=== PATIENT | male | born 1955 | race African-American/Black ===

== ENCOUNTER 2020-12-17 20:00 | Inpatient (IN) | payer MEDICARE ==
[2020-12-17] MEDS ORDERED: Aspirin Chewable 81 MG TAB ONE (20:31)
[2020-12-17] MEDS ORDERED: Acetaminophen 325 MG TAB PO PRN (22:10)
[2020-12-17] MEDS ORDERED: Ondansetron ODT 4 MG TAB PO PRN (22:10)
[2020-12-17] MEDS ORDERED: Dextrose 50% Abboject 50 ML SYRINGE SLOW IVP PRN (22:48)
[2020-12-17] MEDS ORDERED: HumaLOG 300 UNITS/3 ML VIAL SC PRN ×2 (22:48)
[2020-12-17] MEDS ORDERED: Dextrose 5% in Water 1,000 ML IV PRN (22:48)
[2020-12-17] MEDS ORDERED: traMADol HCl 50 MG TAB PO PRN (23:38)
[2020-12-17] MEDS ORDERED: Cyclobenzaprine 10 MG TAB PO SCH (23:45)
[2020-12-17] MEDS ORDERED: Gabapentin 300 MG CAP PO SCH (23:45)
[2020-12-17] MEDS ORDERED: Torsemide 20 MG TAB PO SCH (23:45)
[2020-12-17] MEDS ORDERED: hydrALAZINE 20 MG/ML VIAL SLOW IVP PRN (23:55)
[2020-12-18 00:06] LABS: Hemoglobin A1c 6.7 % (4.0-6.0)
[2020-12-18] MEDS ORDERED: Cyclobenzaprine 10 MG TAB ONE (01:10)
[2020-12-18] MEDS ORDERED: Sacubitril 49 MG/Valsartan 51 MG TABLET PO SCH (01:30)
[2020-12-18 05:04] LABS: SARS-CoV-2 PCR by NAA Not Detected (NotDetected)
[2020-12-18 05:08] LABS: #Basophils 0.1 thou/uL (0.0-0.2); #Eosinphils 0.3 thou/uL (0.0-0.7); #Lymphocytes 3.3 thou/uL (1.20-3.40); #Monocytes 0.5 thou/uL (0.11-0.59); #Neutrophils 2.5 thou/uL (1.40-6.50); %Basophils 1.2 % (0.0-1.0); %Eosinophils 4.3 % (0.0-10.0); %Lymphocytes 49.4 % (21.0-51.0); %Monocytes 7.7 % (0.0-10.0); %Neutrophils 37.4 % (42.0-75.0); Hemoglobin 11.2 g/dL (14.0-18.0); Mean Corpuscular HGB CONC 32.2 g/dL (32.0-36.0); Mean Corpuscular Hemoglobin 31.7 pg (27.0-31.0); Mean Corpuscular Volume 98.4 fL (78.0-98.0); Mean Platelet Volume 7.5 fL (7.4-10.4); Platelet Count 233 thou/uL (130-400); RBC Distribution Width 11.7 % (11.5-14.5); Red Blood Cell (RBC) Count 3.53 mill/uL (4.70-6.10); White Blood Cell (WBC) Count 6.7 thou/uL (4.8-10.8)
[2020-12-18 05:27] LABS: Anion Gap 13 mmol/L (10-20); BUN (Urea Nitrogen) 19 mg/dL (8.4-25.7); Calc. Creatinine Clearance 104 mL/min (70-130); Calcium 9.5 mg/dL (7.8-10.44); Carbon Dioxide 27 mmol/L (23-31); Cardiac Risk 3.2 (Less than 4.5); Chloride 104 mmol/L (98-107); Cholesterol 148 mg/dl (< 200 Desired); Glucose 126 mg/dL (80-115); HDL Cholesterol 46 mg/dL (>60 Neg Risk); LDL Cholesterol, Calculated 85 mg/dL; Potassium 3.7 mmol/L (3.5-5.1); Sodium 140 mmol/L (136-145); Triglycerides 85 mg/dL (Less than 150)
[2020-12-18] MEDS ORDERED: glipiZIDE 5 MG TAB PO SCH (08:00)
[2020-12-18] MEDS: Sacubitril 49 MG/Valsartan 51 MG TABLET PO SCH ×2 (08:39→20:44)
[2020-12-18] MEDS: Famotidine 20 MG TAB PO SCH (08:40)
[2020-12-18] MEDS: Magnesium Oxide 400 MG TAB PO SCH ×2 (08:41→20:44)
[2020-12-18] MEDS: Nebivolol HCl 5 MG TAB PO SCH (08:41)
[2020-12-18] MEDS: Gabapentin 300 MG CAP PO SCH ×3 (08:42→20:43)
[2020-12-18] MEDS: Potassium Chloride 20 MEQ TAB PO SCH (08:42)
[2020-12-18] MEDS: Aspirin 81 mg Enteric Coated Tablet PO SCH (08:42)
[2020-12-18] MEDS: Fish Oil 1,000 MG CAP PO SCH (08:42)
[2020-12-18] MEDS: Cyclobenzaprine 10 MG TAB PO SCH ×3 (08:43→20:44)
[2020-12-18] MEDS: Ezetimibe 10 MG TAB PO SCH (08:43)
[2020-12-18] MEDS: Citalopram 20 MG TAB PO SCH (08:43)
[2020-12-18] MEDS: Allopurinol 300 MG TAB PO SCH (08:44)
[2020-12-18] MEDS: Atorvastatin Calcium 20 MG TAB PO SCH (08:44)
[2020-12-18] MEDS: Torsemide 20 MG TAB PO SCH ×2 (08:44→20:43)
[2020-12-18] MEDS: Lidocaine 5% Patch TD SCH (08:45)
[2020-12-18] MEDS ORDERED: Enoxaparin Sodium 40 MG/0.4 ML SYRINGE SC SCH (09:00)
[2020-12-18] MEDS: Fluticasone Propionate Nasal Spray 16 gm Bottle NASAL SCH (10:02)
[2020-12-18] MEDS: HumuLIN 70/30 (300 UNITS/3 ML VIAL) SC SCH ×2 (11:06→18:23)
[2020-12-18] MEDS: Rivaroxaban 15 MG TAB PO SCH (18:08)
[2020-12-18] MEDS: Lidocaine Patch Removal TOP SCH (20:46)
[2020-12-19] MEDS: Fluticasone Propionate Nasal Spray 16 gm Bottle NASAL SCH (07:51)
[2020-12-19] MEDS: Lidocaine 5% Patch TD SCH (07:52)
[2020-12-19] MEDS: Ezetimibe 10 MG TAB PO SCH (07:56)
[2020-12-19] MEDS: Magnesium Oxide 400 MG TAB PO SCH ×2 (07:56→21:09)
[2020-12-19] MEDS: Famotidine 20 MG TAB PO SCH (07:56)
[2020-12-19] MEDS: Gabapentin 300 MG CAP PO SCH ×3 (07:57→21:09)
[2020-12-19] MEDS: Potassium Chloride 20 MEQ TAB PO SCH (07:57)
[2020-12-19] MEDS: Aspirin 81 mg Enteric Coated Tablet PO SCH (07:57)
[2020-12-19] MEDS: Cyclobenzaprine 10 MG TAB PO SCH ×3 (07:57→21:09)
[2020-12-19] MEDS: Allopurinol 300 MG TAB PO SCH (07:57)
[2020-12-19] MEDS: Citalopram 20 MG TAB PO SCH (07:57)
[2020-12-19] MEDS: Atorvastatin Calcium 20 MG TAB PO SCH (07:58)
[2020-12-19] MEDS: Fish Oil 1,000 MG CAP PO SCH (07:58)
[2020-12-19] MEDS: HumuLIN 70/30 (300 UNITS/3 ML VIAL) SC SCH ×2 (11:02→17:26)
[2020-12-19] MEDS: Nebivolol HCl 5 MG TAB PO SCH (11:04)
[2020-12-19] MEDS: Sacubitril 49 MG/Valsartan 51 MG TABLET PO SCH ×2 (11:04→21:09)
[2020-12-19] MEDS: Torsemide 20 MG TAB PO SCH ×2 (11:05→21:10)
[2020-12-19] MEDS: Rivaroxaban 15 MG TAB PO SCH (16:10)
[2020-12-19] MEDS: Lidocaine Patch Removal TOP SCH (21:10)
[2020-12-20 04:37] VITALS: BMI 39.2
[2020-12-20] MEDS ORDERED: Dextrose 50% Abboject 50 ML SYRINGE SLOW IVP SCH (06:15)
[2020-12-20] MEDS: Cyclobenzaprine 10 MG TAB PO SCH ×2 (07:35→14:06)
[2020-12-20] MEDS: Famotidine 20 MG TAB PO SCH (07:35)
[2020-12-20] MEDS: Sacubitril 49 MG/Valsartan 51 MG TABLET PO SCH (07:35)
[2020-12-20] MEDS: Aspirin 81 mg Enteric Coated Tablet PO SCH (07:35)
[2020-12-20] MEDS: Potassium Chloride 20 MEQ TAB PO SCH (07:35)
[2020-12-20] MEDS: Atorvastatin Calcium 20 MG TAB PO SCH (07:36)
[2020-12-20] MEDS: Citalopram 20 MG TAB PO SCH (07:36)
[2020-12-20] MEDS: Gabapentin 300 MG CAP PO SCH ×2 (07:36→14:06)
[2020-12-20] MEDS: Allopurinol 300 MG TAB PO SCH (07:36)
[2020-12-20] MEDS: Torsemide 20 MG TAB PO SCH (07:36)
[2020-12-20] MEDS: Fish Oil 1,000 MG CAP PO SCH (07:36)
[2020-12-20] MEDS: Nebivolol HCl 5 MG TAB PO SCH ×2 (07:37→10:25)
[2020-12-20] MEDS: Magnesium Oxide 400 MG TAB PO SCH (07:37)
[2020-12-20] MEDS: Ezetimibe 10 MG TAB PO SCH (07:37)
[2020-12-20] MEDS: Fluticasone Propionate Nasal Spray 16 gm Bottle NASAL SCH (07:42)
[2020-12-20] MEDS: HumuLIN 70/30 (300 UNITS/3 ML VIAL) SC SCH ×2 (10:24→16:19)
[2020-12-20] MEDS: Lidocaine 5% Patch TD SCH (10:25)
[2020-12-20 15:27] VITALS: BP 123/58; TEMP 98.2
[2020-12-20] MEDS: Rivaroxaban 15 MG TAB PO SCH (16:18)
== END 2020-12-20 18:15 | disposition home or self-care (01) | DRG 313 ==
LOC: ERS 20:00 → OBSVTOIN 21:44 → INTOOBSV 21:44 → ERHOLD 21:44 → 2SW 12-18 04:02 → OBSVTOIN 12-20 15:56
PROVIDERS: ADMIT Family Medicine; ATTEND Family Medicine
DX: R07.89 Other chest pain (principal); I50.22 Chronic systolic (congestive) heart failure; E78.5 Hyperlipidemia, unspecified; Z20.822 Contact with and (suspected) exposure to COVID-19; E11.9 Type 2 diabetes mellitus without complications; E78.00 Pure hypercholesterolemia, unspecified; I25.5 Ischemic cardiomyopathy; M10.9 Gout, unspecified; E66.01 Morbid (severe) obesity due to excess calories; I11.0 Hypertensive heart disease with heart failure; I25.2 Old myocardial infarction; Z95.810 Presence of automatic (implantable) cardiac defibrillator; Z79.82 Long term (current) use of aspirin; Z79.899 Other long term (current) drug therapy; Z79.4 Long term (current) use of insulin; Z95.5 Presence of coronary angioplasty implant and graft; Z95.1 Presence of aortocoronary bypass graft; Z79.01 Long term (current) use of anticoagulants
CPT/HCPCS: 36415; 36416; 78452; 80048; 80061; 83036; 84443; 85025; 85379; 87635; 93005; 93017; 96374; 96376; A9500; G0378; J0153; J1815; U0003; U0005

== ENCOUNTER 2023-12-24 16:04 | Inpatient (IN) | payer MEDICARE, OTHER ==
[~2023-12-24 16:04] MED LIST: Acetaminophen 325 MG TAB PO PRN; Morphine 4 MG/ML VIAL SLOW IVP PRN; Ondansetron ODT 4 MG TAB SL PRN; Ondansetron PF 4 MG/2 ML Vial IVP PRN
[2023-12-24 17:31] VITALS: BMI 37.8
[2023-12-24] MEDS ORDERED: HumaLOG 300 UNITS/3 ML VIAL SC PRN ×2 (18:57)
[2023-12-24] MEDS ORDERED: Dextrose 5% in Water 1,000 ML IV PRN (18:57)
[2023-12-24] MEDS ORDERED: Ondansetron PF 4 MG/2 ML Vial IVP PRN (18:57)
[2023-12-24] MEDS ORDERED: Glucagon 1 MG/ML KIT IM PRN (18:57)
[2023-12-24] MEDS ORDERED: Acetaminophen 325 MG TAB PO PRN (18:57)
[2023-12-24] MEDS ORDERED: Dextrose 50% Abboject 50 ML SYRINGE SLOW IVP PRN (18:57)
[2023-12-24] MEDS: Pantoprazole 40 MG VIAL IVP SCH (21:47)
[2023-12-24 22:17] LABS: Hematocrit 20.8 % (42.0-52.0)
[2023-12-25 04:21] LABS: #Basophils 0.03 10x3/uL (0.0-0.2); %Basophils 0.4 % (0.0-1.0); %Monocytes 7.8 % (0.0-10.0); %Neutrophils 45.5 % (42.0-75.0); Hematocrit 19.6 % (42.0-52.0); Hemoglobin 6.5 g/dL (14.0-18.0); Mean Corpuscular HGB CONC 33.2 g/dL (32.0-36.0); Mean Corpuscular Hemoglobin 32.7 pg (27.0-31.0); Mean Corpuscular Volume 98.5 fL (78.0-98.0); Mean Platelet Volume 9.5 fL (7.4-10.4); Platelet Count 193 10x3/uL (130-400); RBC Distribution Width 14.3 % (11.5-14.5); Red Blood Cell (RBC) Count 1.99 mill/uL (4.70-6.10)
[2023-12-25 04:38] LABS: Anion Gap 13 mmol/L (10-20); BUN (Urea Nitrogen) 55 mg/dL (8.4-25.7); Calc. Creatinine Clearance 58 mL/min (70-130); Calcium 8.6 mg/dL (7.8-10.44); Carbon Dioxide 22 mmol/L (23-31); Chloride 109 mmol/L (98-107); Estimated GFR 34; Glucose 170 mg/dL (80-115); Potassium 4.2 mmol/L (3.5-5.1); Sodium 140 mmol/L (136-145)
[2023-12-25 11:53] LABS: Hemoglobin 8.2 g/dL (14.0-18.0)
[2023-12-25] MEDS ORDERED: Lidocaine 2% PF 5 ML VIAL ONE (11:53)
[2023-12-25] MEDS ORDERED: PROPOFOL 20 ML ONE (11:53)
[2023-12-25] MEDS ORDERED: SUCCINYLCHOLINE/SOD CL,ISO/PF 200 MG/10 ML SYRINGE FS ONE (12:03)
[2023-12-25] MEDS ORDERED: fentaNYL 50 mcg/mL 1 mL Vial ONE (12:10)
[2023-12-25] MEDS ORDERED: Ondansetron HCl/PF 4 MG/2 ML Vial IVP PRN (12:34)
[2023-12-25] MEDS ORDERED: Promethazine HCl 25 MG/ML VIAL IM PRN (12:34)
[2023-12-25] MEDS: Ondansetron ODT 4 MG TAB PO PRN (17:41)
[2023-12-25] MEDS: GoLYTELY 4,000 ml Bottle PO SCH (21:00)
[2023-12-26 05:57] LABS: #Basophils Less than 0.03 10x3/uL (0.0-0.2); %Basophils 0.3 % (0.0-1.0); %Eosinophils 4.1 % (0.0-10.0); %Lymphocytes 32.4 % (21.0-51.0); %Monocytes 8.5 % (0.0-10.0); %Neutrophils 54.4 % (42.0-75.0); Hematocrit 23.6 % (42.0-52.0); Hemoglobin 7.7 g/dL (14.0-18.0); Mean Corpuscular HGB CONC 32.6 g/dL (32.0-36.0); Mean Corpuscular Volume 97.9 fL (78.0-98.0); Mean Platelet Volume 10.4 fL (7.4-10.4); Platelet Count 194 10x3/uL (130-400); Red Blood Cell (RBC) Count 2.41 mill/uL (4.70-6.10)
[2023-12-26 06:20] LABS: Anion Gap 14 mmol/L (10-20); BUN (Urea Nitrogen) 41 mg/dL (8.4-25.7); Calc. Creatinine Clearance 68 mL/min (70-130); Calcium 8.7 mg/dL (7.8-10.44); Carbon Dioxide 24 mmol/L (23-31); Chloride 110 mmol/L (98-107); Estimated GFR 42; Glucose 79 mg/dL (80-115); Potassium 4.1 mmol/L (3.5-5.1); Sodium 144 mmol/L (136-145)
[2023-12-26] MEDS ORDERED: PROPOFOL 40 ML ONE (16:32)
[2023-12-26] MEDS: GoLYTELY 4,000 ml Bottle PO SCH (17:47)
[2023-12-27 09:13] LABS: Anion Gap 15 mmol/L (10-20); BUN (Urea Nitrogen) 33 mg/dL (8.4-25.7); Calc. Creatinine Clearance 72 mL/min (70-130); Carbon Dioxide 26 mmol/L (23-31); Chloride 108 mmol/L (98-107); Estimated GFR 45; Glucose 70 mg/dL (80-115); Potassium 4.7 mmol/L (3.5-5.1); Sodium 144 mmol/L (136-145)
[2023-12-27 09:34] LABS: #Basophils 0.04 10x3/uL (0.0-0.2); %Basophils 0.6 % (0.0-1.0); %Eosinophils 5.4 % (0.0-10.0); %Lymphocytes 30.4 % (21.0-51.0); %Monocytes 9.3 % (0.0-10.0); Hemoglobin 9.8 g/dL (14.0-18.0); Mean Corpuscular HGB CONC 32.7 g/dL (32.0-36.0); Mean Corpuscular Hemoglobin 31.7 pg (27.0-31.0); Mean Corpuscular Volume 97.1 fL (78.0-98.0); Mean Platelet Volume 10.6 fL (7.4-10.4); Platelet Count 214 10x3/uL (130-400); RBC Distribution Width 15.4 % (11.5-14.5); Red Blood Cell (RBC) Count 3.09 mill/uL (4.70-6.10)
[2023-12-27] MEDS ORDERED: PROPOFOL 20 ML ONE ×3 (11:48→12:25)
[2023-12-27] MEDS ORDERED: Lidocaine 1% PF 5 ML VIAL ONE (11:48)
[2023-12-27] MEDS ORDERED: fentaNYL 50 mcg/mL 1 mL Vial ONE (11:57)
[2023-12-27] MEDS ORDERED: Ondansetron HCl/PF 4 MG/2 ML Vial IVP PRN (12:13)
[2023-12-27] MEDS ORDERED: Promethazine HCl 25 MG/ML VIAL IM PRN (12:13)
[2023-12-27 16:09] VITALS: BP 181/72; TEMP 96.9
== END 2023-12-27 18:03 | disposition home or self-care (01) | DRG 375 ==
LOC: 2NO 17:05
PROVIDERS: ADMIT Family Medicine; ATTEND Hospitalist
PROC: 0DJ08ZZ Inspection of Upper Intestinal Tract, Via Natural or Artificial Opening Endoscopic (ICD-10-PCS; principal; 2023-12-25)
PROC: 0DJD8ZZ Inspection of Lower Intestinal Tract, Via Natural or Artificial Opening Endoscopic (ICD-10-PCS; 2023-12-26)
PROC: 0DBP8ZX Excision of Rectum, Via Natural or Artificial Opening Endoscopic, Diagnostic (ICD-10-PCS; 2023-12-27)
DX: C19 Malignant neoplasm of rectosigmoid junction (principal); D62 Acute posthemorrhagic anemia; N17.9 Acute kidney failure, unspecified; I50.22 Chronic systolic (congestive) heart failure; I25.10 Atherosclerotic heart disease of native coronary artery without angina pectoris; I11.0 Hypertensive heart disease with heart failure; E78.5 Hyperlipidemia, unspecified; M10.9 Gout, unspecified; E11.42 Type 2 diabetes mellitus with diabetic polyneuropathy; I48.91 Unspecified atrial fibrillation; Z79.4 Long term (current) use of insulin; Z79.02 Long term (current) use of antithrombotics/antiplatelets; Z79.84 Long term (current) use of oral hypoglycemic drugs; Z95.5 Presence of coronary angioplasty implant and graft; Z79.82 Long term (current) use of aspirin; Z79.899 Other long term (current) drug therapy; Z79.01 Long term (current) use of anticoagulants; Z95.810 Presence of automatic (implantable) cardiac defibrillator; K64.4 Residual hemorrhoidal skin tags
CPT/HCPCS: 36415; 36416; 36430; 80048; 82607; 85025; 86850; 86900; 86901; 88305; 93005; 93010; C9113; J2001; J2704; J3010; P9016; Q0162

== ENCOUNTER 2024-02-02 13:00 | Outpatient (CLI) | payer OTHER | END 2024-02-02 13:01 | disposition home or self-care (01) | LOC: CT 13:00 | PROVIDERS: ATTEND Surgery | DX: C20 Malignant neoplasm of rectum (principal); N28.1 Cyst of kidney, acquired; J94.8 Other specified pleural conditions; I70.90 Unspecified atherosclerosis | CPT/HCPCS: 71260; 74177; 82565 ==

== ENCOUNTER 2024-02-07 11:06 | Day surgery (SDC) | payer OTHER ==
[2024-02-07] MEDS ORDERED: diphenhydrAMINE 25 MG CAP ONE (12:20)
[2024-02-07] MEDS ORDERED: Acetaminophen 500 MG TAB ONE (12:20)
[2024-02-07] MEDS: diphenhydrAMINE 25 MG CAP PO SCH (12:21)
[2024-02-07] MEDS: Acetaminophen 500 MG TAB PO SCH (12:21)
[2024-02-07 13:48] VITALS: TEMP 97.9
[2024-02-07 15:42] VITALS: BP 121/73
== END 2024-02-07 15:52 | disposition home or self-care (01) ==
LOC: ONC/OP 11:06
PROVIDERS: ATTEND Internal Medicine Hematology & Oncology
DX: D64.9 Anemia, unspecified (principal); D69.6 Thrombocytopenia, unspecified; C20 Malignant neoplasm of rectum; D50.0 Iron deficiency anemia secondary to blood loss (chronic)
CPT/HCPCS: 36430; 86850; 86900; 86901; 86920; P9016; 36415; 80053; 82728; 83540; 83550

== ENCOUNTER 2024-02-16 12:56 | Outpatient (CLI) | payer OTHER | END 2024-02-16 12:57 | disposition home or self-care (01) | LOC: BICRAD 12:56 | PROVIDERS: ATTEND Radiology Diagnostic Neuroimaging | DX: C20 Malignant neoplasm of rectum (principal) | CPT/HCPCS: 71046 ==

== ENCOUNTER 2024-02-17 17:18 | Observation (INO) | payer OTHER ==
[2024-02-17] MEDS: diphenhydrAMINE 25 MG CAP PO SCH (19:21)
[2024-02-17] MEDS: Acetaminophen 500 MG TAB PO SCH (19:21)
[2024-02-17] MEDS ORDERED: Ondansetron PF 4 MG/2 ML Vial IVP PRN (23:04)
[2024-02-17] MEDS ORDERED: Ondansetron ODT 4 MG TAB PO PRN (23:04)
[2024-02-17] MEDS ORDERED: Acetaminophen 650 MG/20.3 ML UDCUP PO PRN (23:04)
[2024-02-17] MEDS ORDERED: Acetaminophen 650 MG Suppository PR PRN (23:04)
[2024-02-17] MEDS ORDERED: Fluticasone Propionate Nasal Spray 16 gm Bottle NASAL PRN (23:06)
[2024-02-17] MEDS ORDERED: tiZANidine HCl 4 MG TAB PO PRN (23:06)
[2024-02-17] MEDS ORDERED: traMADol HCl 50 MG TAB PO PRN (23:06)
[2024-02-17] MEDS ORDERED: LIDOCAINE TOP PRN (23:06)
[2024-02-17] MEDS ORDERED: Insulin Lispro 100 UNIT/ML 10 ML VIAL SC PRN ×2 (23:14)
[2024-02-17] MEDS ORDERED: Glucagon 1 MG/ML KIT IM PRN (23:14)
[2024-02-17] MEDS ORDERED: Dextrose 5% in Water 1,000 ML IV PRN (23:14)
[2024-02-17] MEDS ORDERED: Dextrose 50% Abboject 50 ML SYRINGE SLOW IVP PRN (23:14)
[2024-02-18 04:33] VITALS: TEMP 97.6
[2024-02-18 05:54] LABS: #Basophils 0.04 10x3/uL (0.0-0.2); %Basophils 0.6 % (0.0-1.0); %Eosinophils 6.6 % (0.0-10.0); %Lymphocytes 33.9 % (21.0-51.0); %Monocytes 9.5 % (0.0-10.0); %Neutrophils 49.1 % (42.0-75.0); Hematocrit 21.2 % (42.0-52.0); Mean Corpuscular Hemoglobin 31.1 pg (27.0-31.0); Mean Corpuscular Volume 94.2 fL (78.0-98.0); Mean Platelet Volume 10.4 fL (7.4-10.4); Platelet Count 186 10x3/uL (130-400); Red Blood Cell (RBC) Count 2.25 mill/uL (4.70-6.10)
[2024-02-18 06:17] LABS: Anion Gap 11 mmol/L (10-20); BUN (Urea Nitrogen) 41 mg/dL (8.4-25.7); Calc. Creatinine Clearance 0 mL/min (70-130); Calcium 8.7 mg/dL (7.8-10.44); Carbon Dioxide 25 mmol/L (23-31); Chloride 108 mmol/L (98-107); Estimated GFR 39; Glucose 70 mg/dL (80-115); Potassium 3.5 mmol/L (3.5-5.1); Sodium 140 mmol/L (136-145)
[2024-02-18] MEDS ORDERED: Carvedilol 25 MG TAB PO SCH (08:00)
[2024-02-18 08:39] VITALS: BP 143/89
[2024-02-18] MEDS ORDERED: Gabapentin 300 MG CAP PO SCH (09:00)
[2024-02-18] MEDS ORDERED: Magnesium Oxide 400 MG TAB PO SCH (09:00)
[2024-02-18] MEDS ORDERED: Citalopram 20 MG TAB PO SCH (09:00)
[2024-02-18] MEDS ORDERED: Multivit, Therapeutic 1 TAB PO SCH (09:00)
[2024-02-18] MEDS ORDERED: Famotidine/PF 20 mg/2ml Vial SLOW IVP SCH (09:00)
[2024-02-18] MEDS ORDERED: Potassium Chloride 20 MEQ TAB PO SCH (09:00)
[2024-02-18] MEDS ORDERED: Fish Oil 1,000 MG CAP PO SCH (09:00)
[2024-02-18] MEDS ORDERED: Clopidogrel Bisulfate 75 MG TAB PO SCH (09:00)
[2024-02-18] MEDS ORDERED: Aspirin 81 mg Enteric Coated Tablet PO SCH (09:00)
[2024-02-18] MEDS ORDERED: Allopurinol 100 MG TAB PO SCH (09:00)
[2024-02-18] MEDS ORDERED: Torsemide 20 MG TAB PO SCH ×2 (09:00)
[2024-02-18] MEDS ORDERED: Dicyclomine 10 MG CAP PO SCH (09:00)
[2024-02-18] MEDS ORDERED: Famotidine 20 MG TAB PO SCH (09:00)
[2024-02-18] MEDS ORDERED: Ezetimibe 10 MG TAB PO SCH (09:00)
[2024-02-18] MEDS ORDERED: Insulin Glargine 30 UNITS/0.3 ML VIAL SC SCH (09:00)
[2024-02-18] MEDS ORDERED: Rivaroxaban 15 MG TAB PO SCH (17:00)
[2024-02-18] MEDS ORDERED: Atorvastatin Calcium 20 MG TAB PO SCH (21:00)
[2024-02-19] MEDS ORDERED: Torsemide 20 MG TAB PO SCH (09:00)
== END 2024-02-18 09:40 | disposition home or self-care (01) ==
LOC: ONC/OP 17:18 → MSONC 17:19 → ONC/OP 23:04
PROVIDERS: ADMIT Student in an Organized Health Care Education/Training Program; ATTEND Student in an Organized Health Care Education/Training Program
DX: D50.9 Iron deficiency anemia, unspecified (principal); D69.6 Thrombocytopenia, unspecified; I11.0 Hypertensive heart disease with heart failure; I50.20 Unspecified systolic (congestive) heart failure; E11.9 Type 2 diabetes mellitus without complications; I25.10 Atherosclerotic heart disease of native coronary artery without angina pectoris; M10.9 Gout, unspecified; Z79.4 Long term (current) use of insulin; Z79.82 Long term (current) use of aspirin; Z79.899 Other long term (current) drug therapy; Z95.0 Presence of cardiac pacemaker; Z95.818 Presence of other cardiac implants and grafts
CPT/HCPCS: 36430; 80048; 80053; 82962; 85025; 86850; 86900; 86901; 86920; G0378 ×2; G0379; P9016; 36416

== ENCOUNTER 2024-02-28 07:58 | Emergency (ER) | payer OTHER ==
[2024-02-28] MEDS ORDERED: Acetaminophen 500 MG TAB ONE ×2 (08:57→14:07)
[2024-02-28 09:15] LABS: #Basophils Less than 0.03 10x3/uL (0.0-0.2); %Basophils 0.3 % (0.0-1.0); %Eosinophils 4.6 % (0.0-10.0); %Monocytes 9.2 % (0.0-10.0); %Neutrophils 65.6 % (42.0-75.0); Hematocrit 19.8 % (42.0-52.0); Hemoglobin 6.3 g/dL (14.0-18.0); Mean Corpuscular HGB CONC 31.8 g/dL (32.0-36.0); Mean Corpuscular Hemoglobin 32.3 pg (27.0-31.0); Mean Corpuscular Volume 101.5 fL (78.0-98.0); Mean Platelet Volume 9.8 fL (7.4-10.4); Platelet Count 178 10x3/uL (130-400); Red Blood Cell (RBC) Count 1.95 mill/uL (4.70-6.10)
[2024-02-28 09:41] LABS: INR-International Normal Ratio 1.2; Prothrombin Time 15.6 sec (12.0-14.7)
[2024-02-28 09:42] LABS: PTT 38.5 sec (22.9-36.1)
[2024-02-28 10:00] LABS: ALT (SGPT) 30 U/L (8-55); AST (SGOT) 24 U/L (5-34); Albumin 2.7 g/dL (3.4-4.8); Alkaline Phosphatase 171 U/L (40-110); Anion Gap 12 mmol/L (10-20); BUN (Urea Nitrogen) 29 mg/dL (8.4-25.7); Bilirubin, Total 0.7 mg/dL (0.2-1.2); Calc. Creatinine Clearance 0 mL/min (70-130); Calcium 8.4 mg/dL (7.8-10.44); Carbon Dioxide 23 mmol/L (23-31); Chloride 108 mmol/L (98-107); Estimated GFR 41; Globulin 2.9 g/dL (2.4-3.5); Glucose 118 mg/dL (80-115); Lipase 4 U/L (8-78); Potassium 4.1 mmol/L (3.5-5.1); Protein, Total 5.6 g/dL (5.8-8.1); Sodium 139 mmol/L (136-145)
[2024-02-28] MEDS ORDERED: Iopamidol-370 76% 500 ML MDV (1 ML CHARGE) ONE (12:52)
== END 2024-02-28 14:18 | disposition home or self-care (01) ==
LOC: ERS 07:58
DX: S50.02XA Contusion of left elbow, initial encounter (principal); S80.01XA Contusion of right knee, initial encounter; S80.02XA Contusion of left knee, initial encounter; D64.9 Anemia, unspecified; V49.50XA Passenger injured in collision with unspecified motor vehicles in traffic accident, initial encounter
CPT/HCPCS: 36430; 70450; 71045; 71260; 72125; 73070; 73560 ×2; 74177; 80053; 83690; 85025; 85610; 85730; 86850; 86900; 86901; 86920; 93005; P9016; 36415; G0390; Q9967

== ENCOUNTER 2024-03-07 07:33 | Day surgery (SDC) | payer OTHER ==
[2024-03-06 09:34] VITALS: BMI 37.5
[2024-03-07 09:31] LABS: #Basophils Less than 0.03 10x3/uL (0.0-0.2); %Basophils 0.4 % (0.0-1.0); %Eosinophils 4.7 % (0.0-10.0); %Monocytes 9.5 % (0.0-10.0); Hematocrit 22.7 % (42.0-52.0); Hemoglobin 7.4 g/dL (14.0-18.0); Mean Corpuscular HGB CONC 32.6 g/dL (32.0-36.0); Mean Corpuscular Volume 98.3 fL (78.0-98.0); Platelet Count 164 10x3/uL (130-400); RBC Distribution Width 17.1 % (11.5-14.5); Red Blood Cell (RBC) Count 2.31 mill/uL (4.70-6.10)
[2024-03-07 09:45] LABS: Anion Gap 10 mmol/L (10-20); BUN (Urea Nitrogen) 21 mg/dL (8.4-25.7); Calc. Creatinine Clearance 75 mL/min (70-130); Calcium 8.9 mg/dL (7.8-10.44); Carbon Dioxide 23 mmol/L (23-31); Chloride 111 mmol/L (98-107); Estimated GFR 47; Glucose 94 mg/dL (80-115); Potassium 4.2 mmol/L (3.5-5.1); Sodium 140 mmol/L (136-145)
[2024-03-07] MEDS ORDERED: EPINEPHrine 1 MG/ML VIAL ONE (10:16)
[2024-03-07] MEDS ORDERED: Bupivacaine 0.25% HCL 30 ML VIAL ONE (10:16)
[2024-03-07] MEDS ORDERED: PROPOFOL 20 ML ONE (10:20)
[2024-03-07] MEDS ORDERED: fentaNYL 50 mcg/mL 1 mL Vial ONE (10:21)
[2024-03-07] MEDS ORDERED: Lidocaine 1% PF 5 ML VIAL ONE (10:21)
[2024-03-07] MEDS ORDERED: Sodium Chloride 0.9% 100 ML ONE (10:35)
[2024-03-07] MEDS ORDERED: CEFAZOLIN 2 GM VIAL ONE (10:35)
[2024-03-07] MEDS ORDERED: Ondansetron PF 4 MG/2 ML Vial ONE (10:57)
== END 2024-03-07 13:48 | disposition home or self-care (01) ==
LOC: SDC 07:33
PROVIDERS: ATTEND Surgery
PROC: 0JH60WZ Insertion of Totally Implantable Vascular Access Device into Chest Subcutaneous Tissue and Fascia, Open Approach (ICD-10-PCS; principal; 2024-03-07)
DX: C20 Malignant neoplasm of rectum (principal)
CPT/HCPCS: 71045; 80048; 85025; 93005; 93010; J0171; J0665; J1642; J2405; J2704; J3010; J3490

== ENCOUNTER 2024-05-24 09:53 | Day surgery (SDC) | payer MEDICARE, OTHER ==
[2024-05-24] MEDS ORDERED: diphenhydrAMINE 25 MG CAP ONE (11:06)
[2024-05-24] MEDS ORDERED: Acetaminophen 500 MG TAB ONE (11:06)
[2024-05-24] MEDS: Acetaminophen 500 MG TAB PO SCH (11:07)
[2024-05-24] MEDS: diphenhydrAMINE 25 MG CAP PO SCH (11:07)
[2024-05-24 16:50] VITALS: BP 145/72; TEMP 97.6
== END 2024-05-24 16:51 | disposition home or self-care (01) ==
LOC: ONC/OP 09:53
PROVIDERS: ATTEND Internal Medicine Hematology & Oncology
DX: D64.9 Anemia, unspecified (principal); D69.6 Thrombocytopenia, unspecified
CPT/HCPCS: 36430; 80053; 82378; 86850; 86900; 86901; 86920; J1642; P9016; P9035; 36415

== ENCOUNTER 2024-06-29 12:39 | Day surgery (SDC) | payer MEDICARE, SELFPAY ==
[2024-06-29] MEDS ORDERED: Acetaminophen 500 MG TAB ONE (13:09)
[2024-06-29] MEDS ORDERED: diphenhydrAMINE 25 MG CAP ONE (13:09)
[2024-06-29] MEDS: Acetaminophen 500 MG TAB PO SCH (13:11)
[2024-06-29] MEDS: diphenhydrAMINE 25 MG CAP PO SCH (13:11)
[2024-06-29 16:12] VITALS: BP 133/73; TEMP 98
== END 2024-06-29 16:13 | disposition home or self-care (01) ==
LOC: ONC/OP 12:39
PROVIDERS: ATTEND Nurse Practitioner Adult Health
DX: D64.9 Anemia, unspecified (principal); D69.6 Thrombocytopenia, unspecified
CPT/HCPCS: 36430; 86850; 86900; 86901; J1642; P9016

== ENCOUNTER 2024-07-16 14:39 | Inpatient (IN) | payer OTHER, SELFPAY ==
[2024-07-16 16:58] LABS: Hematocrit 21.6 % (42.0-52.0); Hemoglobin 7.5 g/dL (14.0-18.0); Mean Corpuscular HGB CONC 34.7 g/dL (32.0-36.0); Mean Corpuscular Hemoglobin 34.1 pg (27.0-31.0); Mean Corpuscular Volume 98.2 fL (78.0-98.0); Mean Platelet Volume 11.7 fL (7.4-10.4); Platelet Count 29 10x3/uL (130-400); RBC Distribution Width 19.2 % (11.5-14.5)
[2024-07-16 17:05] LABS: INR-International Normal Ratio 1.1; Prothrombin Time 13.8 sec (12.0-14.7)
[2024-07-16 17:06] LABS: PTT 31.1 sec (22.9-36.1)
[2024-07-16 17:07] LABS: ALT (SGPT) 9 U/L (8-55); AST (SGOT) 20 U/L (5-34); Albumin 2.7 g/dL (3.4-4.8); Alkaline Phosphatase 134 U/L (40-110); Anion Gap 12 mmol/L (10-20); BUN (Urea Nitrogen) 19 mg/dL (8.4-25.7); Bilirubin, Total 1.4 mg/dL (0.2-1.2); Calc. Creatinine Clearance 0 mL/min (70-130); Calcium 8.6 mg/dL (7.8-10.44); Carbon Dioxide 23 mmol/L (23-31); Chloride 110 mmol/L (98-107); Estimated GFR 65; Globulin 3.1 g/dL (2.4-3.5); Glucose 120 mg/dL (80-115); Potassium 4.1 mmol/L (3.5-5.1); Protein, Total 5.8 g/dL (5.8-8.1); Sodium 141 mmol/L (136-145)
[2024-07-16 17:09] LABS: Troponin I 0.083 ng/mL (< 0.028)
[2024-07-16 17:43] LABS: Anisocytosis MODERATE=16-30 cells HPF (0-5); Band 2 % (5-11); Dohle Bodies SLIGHT; Lymphocytes 19 % (21-51); Monocytes 2 % (0-10); Neutrophil 75 % (42-75); Ovalocytes SLIGHT = 2-5 cells HPF (0-1); Platelet Adequacy Comment Significant Decrease; Polychromasia SLIGHT = 2-3 cells HPF (0-2); Tear Drops SLIGHT = 2-5 cells HPF (0-1); Toxic Granulation SLIGHT
[2024-07-16 17:45] LABS: Reflex for Review?? YES
[2024-07-16] MEDS ORDERED: Pantoprazole 40 MG VIAL ONE (18:50)
[2024-07-16] MEDS ORDERED: Metoclopramide HCl 10 MG (2 mL) VIAL ONE (18:51)
[2024-07-16] MEDS ORDERED: Ondansetron PF 4 MG/2 ML Vial IVP PRN (20:45)
[2024-07-16] MEDS ORDERED: Ondansetron ODT 4 MG TAB SL PRN (20:45)
[2024-07-16 20:58] LABS: Hemoglobin A1c 4.9 % (4.0-6.0)
[2024-07-16] MEDS ORDERED: Insulin Lispro 100 UNIT/ML 10 ML VIAL SC PRN (21:02)
[2024-07-16] MEDS ORDERED: Dextrose 5% in Water 1,000 ML IV PRN (21:02)
[2024-07-16] MEDS ORDERED: Dextrose 50% Abboject 50 ML SYRINGE SLOW IVP PRN (21:02)
[2024-07-16] MEDS ORDERED: Glucagon 1 MG/ML KIT IM PRN (21:02)
[2024-07-16] MEDS ORDERED: Ketorolac Tromethamine 30 MG (1 mL) VIAL IVP PRN (21:09)
[2024-07-16 22:34] LABS: Troponin I 0.101 ng/mL (< 0.028)
[2024-07-16 22:46] VITALS: BMI 30.2
[2024-07-16] MEDS: Ciprofloxacin Lactate/D5W 400 MG in Premix 1 BAG IVPB SCH (23:45)
[2024-07-17 01:25] LABS: Troponin I 0.084 ng/mL (< 0.028)
[2024-07-17] MEDS ORDERED: LIDOCAINE TOP PRN (02:07)
[2024-07-17 04:53] LABS: Hematocrit 20.4 % (42.0-52.0); Mean Corpuscular HGB CONC 34.3 g/dL (32.0-36.0); Mean Corpuscular Hemoglobin 34.1 pg (27.0-31.0); Mean Corpuscular Volume 99.5 fL (78.0-98.0); Platelet Count 19 10x3/uL (130-400); RBC Distribution Width 18.9 % (11.5-14.5); Red Blood Cell (RBC) Count 2.05 mill/uL (4.70-6.10)
[2024-07-17 05:00] LABS: ALT (SGPT) 9 U/L (8-55); AST (SGOT) 17 U/L (5-34); Albumin 2.6 g/dL (3.4-4.8); Alkaline Phosphatase 122 U/L (40-110); Anion Gap 13 mmol/L (10-20); BUN (Urea Nitrogen) 18 mg/dL (8.4-25.7); Bilirubin, Total 1.4 mg/dL (0.2-1.2); Calc. Creatinine Clearance 93 mL/min (70-130); Calcium 8.1 mg/dL (7.8-10.44); Carbon Dioxide 20 mmol/L (23-31); Chloride 114 mmol/L (98-107); Estimated GFR 80; Globulin 2.8 g/dL (2.4-3.5); Glucose 88 mg/dL (80-115); Magnesium 1.9 mg/dL (1.6-2.6); Potassium 3.4 mmol/L (3.5-5.1); Protein, Total 5.4 g/dL (5.8-8.1); Sodium 144 mmol/L (136-145)
[2024-07-17 05:17] LABS: Anisocytosis SLIGHT = 6-15 cells HPF (0-5); Band 2 % (5-11); Eosinophils 3 % (0-10); Hypochromia SLIGHT = 6-15 cells HPF (0-5); Large Platelets 6.9 % (0-5); Lymphocytes 24 % (21-51); Monocytes 7 % (0-10); Neutrophil 61 % (42-75); Nucleated RBC (Manual Ct) 3 % (0); Platelet Adequacy Comment Platelets Decreased; Polychromasia SLIGHT = 2-3 cells HPF (0-2)
[2024-07-17] MEDS: Acetaminophen 325 MG TAB PO PRN (06:27)
[2024-07-17] MEDS ORDERED: Naloxegol 12.5 MG TAB PO SCH (07:30)
[2024-07-17] MEDS: Morphine 2 MG/ML VIAL SLOW IVP PRN (08:08)
[2024-07-17] MEDS: Ezetimibe 10 MG TAB PO SCH (08:11)
[2024-07-17] MEDS: Furosemide 40 MG TAB PO SCH (08:12)
[2024-07-17] MEDS: Famotidine 20 MG TAB PO SCH (08:12)
[2024-07-17] MEDS: Clopidogrel Bisulfate 75 MG TAB PO SCH (08:13)
[2024-07-17] MEDS: Citalopram 20 MG TAB PO SCH (08:13)
[2024-07-17] MEDS: Gabapentin 300 MG CAP PO SCH (08:13)
[2024-07-17] MEDS: Multivit, Therapeutic 1 TAB PO SCH (08:13)
[2024-07-17] MEDS: Magnesium Oxide 400 MG TAB PO SCH (08:13)
[2024-07-17] MEDS: Allopurinol 100 MG TAB PO SCH (08:13)
[2024-07-17] MEDS: Carvedilol 6.25 MG TAB PO SCH ×2 (08:13→13:30)
[2024-07-17] MEDS: Famotidine/PF 20 mg/2ml Vial SLOW IVP SCH (08:21)
[2024-07-17] MEDS: Insulin Glargine 30 UNITS/0.3 ML VIAL SC SCH (09:00)
[2024-07-17] MEDS ORDERED: OMEGA ACID ETHYL ESTERS PO SCH (09:00)
[2024-07-17 09:23] LABS: Anion Gap 12 mmol/L (10-20); BUN (Urea Nitrogen) 18 mg/dL (8.4-25.7); Calc. Creatinine Clearance 83 mL/min (70-130); Calcium 8.3 mg/dL (7.8-10.44); Carbon Dioxide 22 mmol/L (23-31); Chloride 111 mmol/L (98-107); Estimated GFR 70; Glucose 88 mg/dL (80-115); Magnesium 1.9 mg/dL (1.6-2.6); Phosphorus 2.5 mg/dL (2.3-4.7); Potassium 3.4 mmol/L (3.5-5.1); Sodium 142 mmol/L (136-145)
[2024-07-17 09:24] LABS: Anion Gap 14 mmol/L (10-20); BUN (Urea Nitrogen) 18 mg/dL (8.4-25.7); Calc. Creatinine Clearance 80 mL/min (70-130); Calcium 8.4 mg/dL (7.8-10.44); Carbon Dioxide 22 mmol/L (23-31); Chloride 111 mmol/L (98-107); Estimated GFR 67; Glucose 89 mg/dL (80-115); Magnesium 1.9 mg/dL (1.6-2.6); Phosphorus 2.5 mg/dL (2.3-4.7); Potassium 3.5 mmol/L (3.5-5.1); Sodium 143 mmol/L (136-145)
[2024-07-17] MEDS: HYDROcodone/Acetaminophen 7.5/325 mg Tablet PO PRN (10:03)
[2024-07-17] MEDS: Magnesium Sulfate In Water 4 GM in Premix 1 BAG IVPB SCH (13:24)
[2024-07-17] MEDS: Magnesium Sulfate 3 GM in Sodium Chloride 0.9% 100 ML IVPB SCH (13:30)
[2024-07-17] MEDS: Valsartan 80 MG TAB PO SCH ×2 (13:31→20:59)
[2024-07-17 19:59] LABS: Hematocrit 24.4 % (42.0-52.0); Hemoglobin 8.2 g/dL (14.0-18.0); Mean Corpuscular HGB CONC 33.6 g/dL (32.0-36.0); Mean Corpuscular Hemoglobin 34.3 pg (27.0-31.0); Mean Corpuscular Volume 102.1 fL (78.0-98.0); Mean Platelet Volume 11.1 fL (7.4-10.4); Platelet Count 32 10x3/uL (130-400); RBC Distribution Width 18.5 % (11.5-14.5); Red Blood Cell (RBC) Count 2.39 mill/uL (4.70-6.10)
[2024-07-17] MEDS: Polyethylene Glycol 3350 17 GM Packet PO SCH (20:58)
[2024-07-17] MEDS: Senokot S 8.6-50 MG TAB PO SCH (20:59)
[2024-07-17] MEDS: Torsemide 20 MG TAB PO SCH (20:59)
[2024-07-17] MEDS: Carvedilol 25 MG TAB PO SCH (21:00)
[2024-07-17] MEDS: Atorvastatin Calcium 20 MG TAB PO SCH (21:00)
[2024-07-17] MEDS ORDERED: Vancomycin (BATCH) 1.5 GM in Premix 1 BAG IVPB SCH (21:00)
[2024-07-17] MEDS ORDERED: Piperacillin/Tazobactam 4.5 GM in Sodium Chloride 0.9% 100 ML IVPB SCH (23:59)
[2024-07-18] MEDS ORDERED: Valsartan 80 MG TAB ONE ×2 (09:00→21:00)
[2024-07-18] MEDS ORDERED: Senokot S 8.6-50 MG TAB ONE ×2 (09:00→21:00)
[2024-07-18] MEDS ORDERED: Famotidine/PF 20 mg/2ml Vial ONE (09:00)
[2024-07-18] MEDS ORDERED: Famotidine 20 MG TAB ONE (09:00)
[2024-07-18] MEDS ORDERED: Carvedilol 25 MG TAB ONE ×2 (09:00→21:00)
[2024-07-18] MEDS ORDERED: Clopidogrel Bisulfate 75 MG TAB PO SCH (09:00)
[2024-07-18] MEDS ORDERED: Multivit, Therapeutic 1 TAB ONE (09:00)
[2024-07-18] MEDS ORDERED: Ezetimibe 10 MG TAB ONE (09:00)
[2024-07-18] MEDS ORDERED: Potassium Chloride 20 MEQ TAB ONE (09:00)
[2024-07-18] MEDS ORDERED: HYDROcodone/Acetaminophen 7.5/325 mg Tablet ONE ×2 (09:00→23:50)
[2024-07-18] MEDS ORDERED: Magnesium Oxide 400 MG TAB ONE ×2 (09:00→21:00)
[2024-07-18] MEDS ORDERED: Citalopram 20 MG TAB ONE (09:00)
[2024-07-18] MEDS ORDERED: Allopurinol 100 MG TAB ONE (09:00)
[2024-07-18] MEDS ORDERED: Vancomycin 1 GM/200 ML (FROZEN) BAG ONE ×2 (09:00→21:00)
[2024-07-18] MEDS ORDERED: Morphine 2 MG/ML VIAL ONE ×3 (10:30→21:00)
[2024-07-18] MEDS ORDERED: Atorvastatin Calcium 20 MG TAB ONE (21:00)
[2024-07-18] MEDS ORDERED: Torsemide 20 MG TAB ONE (21:00)
[2024-07-18] MEDS ORDERED: Gabapentin 300 MG CAP ONE (21:00)
[2024-07-19] MEDS ORDERED: Piperacillin/Tazobactam 3.375 GM VIAL ONE ×2 (02:15→11:05)
[2024-07-19] MEDS ORDERED: Morphine 2 MG/ML VIAL ONE ×2 (05:00→22:06)
[2024-07-19] MEDS ORDERED: Vancomycin 1 GM/200 ML (FROZEN) BAG ONE ×2 (09:16→22:06)
[2024-07-19] MEDS ORDERED: Valsartan 80 MG TAB ONE (09:16)
[2024-07-19] MEDS ORDERED: Torsemide 20 MG TAB ONE (09:16)
[2024-07-19] MEDS ORDERED: Multivit, Therapeutic 1 TAB ONE (09:16)
[2024-07-19] MEDS ORDERED: Allopurinol 100 MG TAB ONE (09:16)
[2024-07-19] MEDS ORDERED: Famotidine/PF 20 mg/2ml Vial ONE (09:16)
[2024-07-19] MEDS ORDERED: Citalopram 20 MG TAB ONE (09:16)
[2024-07-19] MEDS ORDERED: Potassium Chloride 20 MEQ TAB ONE (09:16)
[2024-07-19] MEDS ORDERED: Magnesium Oxide 400 MG TAB ONE ×2 (09:16→22:06)
[2024-07-19] MEDS ORDERED: Carvedilol 25 MG TAB ONE (09:16)
[2024-07-19] MEDS ORDERED: Gabapentin 300 MG CAP ONE ×2 (09:16→22:06)
[2024-07-19] MEDS ORDERED: Senokot S 8.6-50 MG TAB ONE (09:16)
[2024-07-19] MEDS ORDERED: Famotidine 20 MG TAB ONE ×2 (09:16→22:06)
[2024-07-19] MEDS ORDERED: Ezetimibe 10 MG TAB ONE (09:16)
[2024-07-19] MEDS: Piperacillin/Tazobactam 3.375 GM in Sodium Chloride 0.9% 100 ML IVPB SCH (16:55)
[2024-07-19] MEDS: Dapagliflozin Propanediol 10 MG TAB PO SCH (16:56)
[2024-07-19] MEDS: Potassium Chloride 20 MEQ TAB PO SCH (17:00)
[2024-07-19] MEDS: Vancomycin 1 GM in Premix 1 BAG IVPB SCH (17:09)
[2024-07-20] MEDS ORDERED: Piperacillin/Tazobactam 3.375 GM VIAL ONE ×2 (01:58→10:09)
[2024-07-20 04:50] LABS: Hematocrit 24.5 % (42.0-52.0); Hemoglobin 8.6 g/dL (14.0-18.0); Mean Corpuscular HGB CONC 35.1 g/dL (32.0-36.0); Mean Corpuscular Volume 93.9 fL (78.0-98.0); Mean Platelet Volume 11.8 fL (7.4-10.4); Platelet Count 16 10x3/uL (130-400); RBC Distribution Width 17.8 % (11.5-14.5); Red Blood Cell (RBC) Count 2.61 mill/uL (4.70-6.10)
[2024-07-20 05:04] LABS: Vancomycin, Random 36.6 ug/mL (See Comment)
[2024-07-20 05:19] LABS: Band 3 % (5-11); Eosinophils 4 % (0-10); Large Platelets 9.7 % (0-5); Lymphocytes 38 % (21-51); Monocytes 16 % (0-10); Neutrophil 38 % (42-75); Platelet Adequacy Comment Significant Decrease; RBC Morphology Within Normal Limits; Smudge Cells 8.7 %
[2024-07-20 10:03] LABS: Anion Gap 12 mmol/L (10-20); BUN (Urea Nitrogen) 18 mg/dL (8.4-25.7); Calc. Creatinine Clearance 67 mL/min (70-130); Calcium 8.2 mg/dL (7.8-10.44); Carbon Dioxide 24 mmol/L (23-31); Chloride 109 mmol/L (98-107); Estimated GFR 53; Glucose 108 mg/dL (80-115); Sodium 142 mmol/L (136-145)
[2024-07-20] MEDS ORDERED: Famotidine 20 MG TAB ONE (10:09)
[2024-07-20] MEDS ORDERED: Potassium Chloride 20 MEQ TAB ONE (10:09)
[2024-07-20] MEDS ORDERED: Magnesium Oxide 400 MG TAB ONE (10:09)
[2024-07-20] MEDS ORDERED: Multivit, Therapeutic 1 TAB ONE (10:09)
[2024-07-20] MEDS ORDERED: Senokot S 8.6-50 MG TAB ONE (10:09)
[2024-07-20] MEDS ORDERED: Allopurinol 100 MG TAB ONE (10:09)
[2024-07-20] MEDS ORDERED: Carvedilol 25 MG TAB ONE (10:09)
[2024-07-20] MEDS ORDERED: Gabapentin 300 MG CAP ONE (10:09)
[2024-07-20] MEDS ORDERED: Citalopram 20 MG TAB ONE (10:09)
[2024-07-20] MEDS ORDERED: Ezetimibe 10 MG TAB ONE (10:09)
[2024-07-20] MEDS ORDERED: Torsemide 20 MG TAB ONE (10:09)
[2024-07-20] MEDS: MAGIC MOUTHWASH 10 ML UDCUP SSW SCH (10:11)
[2024-07-20] MEDS: Acetaminophen 325 MG TAB PO SCH (11:54)
[2024-07-20] MEDS: Potassium Chloride 20 MEQ TAB PO SCH (15:00)
[2024-07-20] MEDS: MAGIC MOUTHWASH 10 ML, Compounding Fee 1 SSW SCH (15:00)
[2024-07-20] MEDS: Vancomycin 1 GM in Premix 1 BAG IVPB SCH (20:56)
[2024-07-21] MEDS: Acetaminophen 325 MG TAB PO PRN (02:50)
[2024-07-21 04:47] LABS: Hematocrit 24.4 % (42.0-52.0); Hemoglobin 8.5 g/dL (14.0-18.0); Mean Corpuscular HGB CONC 34.8 g/dL (32.0-36.0); Mean Corpuscular Hemoglobin 32.8 pg (27.0-31.0); Mean Corpuscular Volume 94.2 fL (78.0-98.0); Mean Platelet Volume 13.2 fL (7.4-10.4); Platelet Count 17 10x3/uL (130-400); RBC Distribution Width 17.6 % (11.5-14.5); Red Blood Cell (RBC) Count 2.59 mill/uL (4.70-6.10)
[2024-07-21 06:59] LABS: Anisocytosis SLIGHT = 6-15 cells HPF (0-5); Band 6 % (5-11); Eosinophils 6 % (0-10); Large Platelets 6.4 % (0-5); Lymphocytes 32 % (21-51); Monocytes 21 % (0-10); Neutrophil 32 % (42-75); Ovalocytes SLIGHT = 2-5 cells HPF (0-1); Platelet Adequacy Comment Significant Decrease; Polychromasia SLIGHT = 2-3 cells HPF (0-2); Reactive Lymphocytes 2 % (0-10); Smudge Cells 6.4 %
[2024-07-21] MEDS: HYDROcodone/Acetaminophen 5/325 mg Tablet PO PRN (13:51)
[2024-07-21] MEDS ORDERED: Vancomycin Dose by Levels Sliding Scale (Wt 71-99) FS SCH (15:00)
[2024-07-22 05:19] LABS: Hematocrit 24.6 % (42.0-52.0); Hemoglobin 8.4 g/dL (14.0-18.0); Mean Corpuscular HGB CONC 34.1 g/dL (32.0-36.0); Mean Corpuscular Hemoglobin 32.9 pg (27.0-31.0); Mean Corpuscular Volume 96.5 fL (78.0-98.0); Mean Platelet Volume 12.7 fL (7.4-10.4); Platelet Count 41 10x3/uL (130-400); RBC Distribution Width 17.7 % (11.5-14.5); Red Blood Cell (RBC) Count 2.55 mill/uL (4.70-6.10)
[2024-07-22 05:35] LABS: Vancomycin, Random 29.9 ug/mL (See Comment)
[2024-07-22 05:46] LABS: Anisocytosis SLIGHT = 6-15 cells HPF (0-5); Band 4 % (5-11); Eosinophils 5 % (0-10); Large Platelets 7.8 % (0-5); Lymphocytes 30 % (21-51); Monocytes 15 % (0-10); Neutrophil 43 % (42-75); Platelet Adequacy Comment Platelets Decreased; Polychromasia SLIGHT = 2-3 cells HPF (0-2); Schistocytes SLIGHT = 2-5 cells HPF (0-1); Smudge Cells 7.8 %
[2024-07-22] MEDS: Morphine 2 MG/ML VIAL ONE ×3 (15:49→15:50)
[2024-07-22] MEDS: Piperacillin/Tazobactam 3.375 GM in Sodium Chloride 0.9% 100 ML IVPB SCH (15:49)
[2024-07-22] MEDS: Vancomycin (BATCH) 2 GM in Premix 1 BAG IVPB SCH (15:49)
[2024-07-23 05:17] LABS: Hematocrit 24.7 % (42.0-52.0); Hemoglobin 8.4 g/dL (14.0-18.0); Mean Corpuscular Hemoglobin 32.9 pg (27.0-31.0); Mean Corpuscular Volume 96.9 fL (78.0-98.0); Mean Platelet Volume 12.9 fL (7.4-10.4); Platelet Count 41 10x3/uL (130-400); RBC Distribution Width 18.1 % (11.5-14.5); Red Blood Cell (RBC) Count 2.55 mill/uL (4.70-6.10)
[2024-07-23 07:04] LABS: Anisocytosis SLIGHT = 6-15 cells HPF (0-5); Band 20 % (5-11); Eosinophils 2 % (0-10); Large Platelets 6.1 % (0-5); Lymphocytes 11 % (21-51); Macrocytosis SLIGHT = 6-15 cells HPF (0-5); Monocytes 12 % (0-10); Neutrophil 53 % (42-75); Nucleated RBC (Manual Ct) 1 % (0); Ovalocytes SLIGHT = 2-5 cells HPF (0-1); Platelet Adequacy Comment Platelets Decreased; Polychromasia SLIGHT = 2-3 cells HPF (0-2); Reactive Lymphocytes 1 % (0-10); Smudge Cells 7.1 %
[2024-07-23 12:05] VITALS: BP 110/51; TEMP 98
[2024-07-23] MEDS: Ondansetron ODT 4 MG TAB PO PRN (14:19)
[2024-07-28 11:23] LABS: Hemoglobin 7.2 g/dL (14.0-18.0); Mean Corpuscular HGB CONC 34.3 g/dL (32.0-36.0); Mean Corpuscular Hemoglobin 33.8 pg (27.0-31.0); Mean Corpuscular Volume 98.6 fL (78.0-98.0); Mean Platelet Volume 12.1 fL (7.4-10.4); Platelet Count 28 10x3/uL (130-400); RBC Distribution Width 17.9 % (11.5-14.5); Red Blood Cell (RBC) Count 2.13 mill/uL (4.70-6.10)
[2024-07-28 11:25] LABS: Manual Diff?? YES
[2024-07-28 11:29] LABS: Band 6 % (5-11); Eosinophils 14 % (0-10); Lymphocytes 48 % (21-51); Monocytes 4 % (0-10); Neutrophil 26 % (42-75)
[2024-07-28 11:30] LABS: Anisocytosis SLIGHT = 6-15 cells (100X) (0-5/hpf); Hypochromia SLIGHT = 6-15 cells (100X) (0-5/hpf); Nucleated RBC (Manual Ct) 2 % (0); Polychromasia SLIGHT = 2-3 cells (100X) (0-2/hpf)
[2024-07-28 11:31] LABS: Platelet Adequacy Comment Platelets Decreased
[2024-07-28 11:32] LABS: Iron 202 ug/dL (65-175); Iron Binding Capacity, Total 194 mcg/dL (261-462)
[2024-07-28 11:33] LABS: Vancomycin, Random 18.2 ug/mL (See Comment)
== END 2024-07-23 17:36 | disposition home or self-care (01) | DRG 374 ==
LOC: ERS 14:39 → 2SE 20:26
PROVIDERS: ADMIT Student in an Organized Health Care Education/Training Program; ATTEND Internal Medicine
PROC: 30233N1 Transfusion of Nonautologous Red Blood Cells into Peripheral Vein, Percutaneous Approach (ICD-10-PCS; principal; 2024-07-17)
PROC: 6A550Z2 Pheresis of Platelets, Single (ICD-10-PCS; 2024-07-21)
DX: C19 Malignant neoplasm of rectosigmoid junction (principal); D61.810 Antineoplastic chemotherapy induced pancytopenia; I50.23 Acute on chronic systolic (congestive) heart failure; K92.1 Melena; I48.21 Permanent atrial fibrillation; E11.9 Type 2 diabetes mellitus without complications; E78.5 Hyperlipidemia, unspecified; D69.6 Thrombocytopenia, unspecified; I25.10 Atherosclerotic heart disease of native coronary artery without angina pectoris; M10.9 Gout, unspecified; D63.0 Anemia in neoplastic disease; D64.81 Anemia due to antineoplastic chemotherapy; T45.1X5A Adverse effect of antineoplastic and immunosuppressive drugs, initial encounter; D50.0 Iron deficiency anemia secondary to blood loss (chronic); I25.5 Ischemic cardiomyopathy; I11.0 Hypertensive heart disease with heart failure; Z95.5 Presence of coronary angioplasty implant and graft; Z95.810 Presence of automatic (implantable) cardiac defibrillator; Z79.899 Other long term (current) drug therapy; E88.09 Other disorders of plasma-protein metabolism, not elsewhere classified; Z79.02 Long term (current) use of antithrombotics/antiplatelets; E66.9 Obesity, unspecified; Z68.30 Body mass index [BMI] 30.0-30.9, adult
CPT/HCPCS: 36415; 36416; 36430; 71045; 71275; 74177; 80053; 80202; 82565; 82728; 83036; 83540; 83550; 83735; 83880; 84100; 84484; 85025; 85060; 85610; 85730; 86850; 86900; 86901; 87040; 87081; 93005; 93306; 93798; 94760; 96374; 96375; 97139; J0744; J1642; J1815; J2272; J2470; J2543; J2765; J3370-JW; J3475; J3490; P9016; P9035; Q0162